=== PATIENT | female | born 1995 | race American Indian/Alaskan Native ===

== ENCOUNTER 2017-07-25 00:11 | Emergency (ER) | payer SELFPAY ==
[2017-07-25 00:28] VITALS: BP 119/67; TEMP 99.7
[2017-07-25 02:29] VITALS: PULSE 98; RESP 17; O2SAT 98
[2017-07-25 02:41] LABS: SQUAMOUS EPITHIAL 3 /hpf (0-5); URINE BACTERIA OCC (<OCC); URINE BILIRUBIN NEGATIVE (NEGATIVE); URINE BLOOD MODERATE (NEGATIVE); URINE CLARITY CLOUDY (Clear); URINE COLOR YELLOW (YELLOW); URINE GLUCOSE (UA) NEG (Normal); URINE LEUKOCYTE ESTERASE LARGE Leu/uL (Negative); URINE NITRATE NEGATIVE (NEGATIVE); URINE PROTEIN 30 mg/dL (NEGATIVE); URINE UROBILINOGEN 0.2-1.0 mg/dL (0.2-1.0)
--- NOTE | 2017-08-02 23:28 | ED PDOC ---
HPI: Female Pain Time Seen by Provider: 07/25/17 01:20 Chief Complaint (Nursing): Female Genitourinary Chief Complaint (Provider): Female Genitourinary History Per: Patient History/Exam Limitations: no limitations Onset/Duration Of Symptoms: Days (x2) Current Symptoms Are (Timing): Still Present Quality Of Discomfort: Burning Associated Symptoms: denies: Fever Additional Complaint(s): 22 year old female presents to ED with complaints of burning dysuria x2 days and has no past medical history. (+) lower back pain. (-) fever, chills, nausea , or vomiting. Patient reports she checked herself for UTI at home with an over- the-counter urine strip. PCP: None Past Medical History Reviewed: Historical Data, Nursing Documentation, Vital Signs Vital Signs: Last Vital Signs Temp 99.7 F H 07/25/17 00:26 Pulse 98 H 07/25/17 02:28 Resp 17 07/25/17 02:28 BP 119/67 07/25/17 00:26 Pulse Ox 98 07/25/17 02:28 - Medical History PMH: No Chronic Diseases - Surgical History Surgical History: No Surg Hx - Family History Family History: States: Unknown Family Hx - Social History Current smoker - smoking cessation education provided: No Ex-Smoker (has not smoked in the last 12 months): No Alcohol: None Drugs: Denies - Home Medications Home Medications: Ambulatory Orders Medication Instructions Recorded Nitrofurantoin Macrocrystals 100 mg PO BID #14 cap 07/25/17 [Macrobid] Phenazopyridine HCl [Pyridium] 100 mg PO TID #6 tab 07/25/17 - Allergies Allergies/Adverse Reactions: Allergies Allergy/AdvReac Type Severity Reaction Status Date / Time No Known Allergies Allergy Verified 07/25/17 00:27 Review of Systems ROS Statement: Except As Marked, All Systems Reviewed And Found Negative Constitutional: Negative for: Fever, Chills Gastrointestinal: Negative for: Nausea, Vomiting Genitourinary Female: Positive for: Dysuria (burning) Musculoskeletal: Positive for: Back Pain (lower) Physical Exam - Reviewed Nursing Documentation Reviewed: Yes Vital Signs Reviewed: Yes - Physical Exam Appears: Positive for: Non-toxic, No Acute Distress Skin: Positive for: Normal Color, Warm, Dry Cardiovascular/Chest: Positive for: Regular Rate, Rhythm, Tachycardia Respiratory: Positive for: Normal Breath Sounds. Negative for: Respiratory Distress Gastrointestinal/Abdominal: Positive for: Soft, Tenderness (suprapubic tenderness) Back: Positive for: Normal Inspection. Negative for: L CVA Tenderness, R CVA Tenderness Neurologic/Psych: Positive for: Alert, Oriented. Negative for: Motor/Sensory Deficits - ECG O2 Sat by Pulse Oximetry: 98 (RA) Pulse Ox Interpretation: Normal Medical Decision Making Medical Decision Makin Initial impression: Initial plan: * UPreg * UDip * UCx * UA 0215 Urine consistent with UTI. * Pyridium 200mg PO * Macrobid 100mg PO Patient will be discharged with prescriptions for Pyridium and Macrobid and is advised to follow up at clinic in 1-2 days. Return precautions given. Patient stable for discharge home. Scribe Attestation: Documented by Lorin Mullen acting as a scribe for Cristofer Gloria MD. Scribe Attestation: All medical record entries made by the Scribe were at my direction and personally dictated by me. I have reviewed the chart and agree that the record accurately reflects my personal performance of the history, physical exam, medical decision making, and the department course for this patient. I have also personally directed, reviewed, and agree with the discharge instructions and disposition. Disposition - Clinical Impression Clinical Impression: Urinary tract infection - Disposition Referrals: [facility] [Outside] Disposition: Routine/Home Disposition Time: 02:15 Condition: STABLE Prescriptions: Nitrofurantoin Macrocrystals [Macrobid] 100 mg PO BID #14 cap Phenazopyridine HCl [Pyridium] 100 mg PO TID #6 tab Forms: [employer] ([place])
== END 2017-07-25 02:28 | disposition home or self-care (01) ==
LOC: H.ER 00:11
DX: N39.0 Urinary tract infection, site not specified (principal); Z87.891 Personal history of nicotine dependence